=== PATIENT | male | born 1975 | race Hispanic/Latino ===

== ENCOUNTER 2017-07-11 13:33 | Inpatient (IN) | payer SELFPAY ==
[2017-07-11] MEDS ORDERED: Ondansetron ODT 4 MG TAB PO PRN (13:45)
[2017-07-11] MEDS ORDERED: Bisacodyl 5 MG TAB PO PRN (13:45)
[2017-07-11] MEDS ORDERED: Sodium Chloride 0.9% 1,000 ML IV SCH (13:45)
[2017-07-11] MEDS ORDERED: Ondansetron HCl/PF 4 MG/2 ML Vial IVP PRN (13:45)
[2017-07-11 14:16] VITALS: BMI 30.1
[2017-07-11] MEDS ORDERED: FLU VACC QS2017-18 36 mo. & older 0.5 ML SYRINGE IM ONE (14:30)
[2017-07-11] MEDS ORDERED: Magnesium 2 GM/NS 0.9% 100 ML 2 GM in Premix Bag 1 BAG IVPB SCH (15:30)
[2017-07-11 16:20] LABS: Bilirubin Negative (Negative); Blood, Urine Negative (Negative); Glucose, Urine (Dipstick) 100 mg/dL (Negative); Ketone, Urine Negative (Negative); Nitrite Negative (Negative); Protein, Urine (Dipstick) Negative (Neg-Trace); Urobilinogen 0.2 mg/dL (0.2-1.0)
[2017-07-11 16:22] LABS: Bacteria/HPF None Seen HPF (None Seen); Hyaline Casts/LPF 0-3 HYALINE CAST LPF (0-3 Hyaline); RBC/HPF 0-3 HPF (0-3); Squamous Epithelial 0-3 HPF (0-3); WBC/HPF 0-3 HPF (0-3)
[2017-07-11] MEDS: Lorazepam 2 MG/ML VIAL SLOW IVP PRN ×2 (16:24→22:14)
[2017-07-11 16:27] LABS: Amphetamine Not Detected (NotDetected); Methadone Not Detected (NotDetected); Methamphetamine Not Detected (NotDetected)
[2017-07-11 17:47] LABS: Sodium 135 mmol/L (135-148)
[2017-07-11 17:49] LABS: Mode NC; Modified Allen's Test POSITIVE; Vent NO
--- NOTE | 2017-07-11 17:53 | HP ---
PRIMARY CARE PHYSICIAN: City call from [place]. CHIEF COMPLAINT: Coughing, wheezing, shortness of breath. HISTORY OF PRESENT ILLNESS: This is a 42-year-old male with a known history of intermittent asthma who has never had intubation, but has been admitted to the hospital multiple times, most rece ntly in August of this year. He was in his normal state of health without any significant asthma s ymptoms until the night before admission then he had sudden onset of shortness of breath, wheezing, c oughing productive of green sputum and upper back pain from struggling to breathe. He took multiple home nebulizer and albuterol treatments without any improvement, so this morning he came into the [facility] Emergency Room and there was noted to be in mild to moderate respiratory distress with diffuse wheezing. He was given multiple back to back nebs with an improvement in his work of breathing and wheezing on exam and he is transferred here for status asthmaticus. He also had a 125 mg of Solu-Med rol there and did not get any magnesium. He had a chest x-ray that showed no infiltrate, just some p eribronchial cuffing. No other significant abnormalities on his labs. He did have a negative flu te st there. PAST MEDICAL HISTORY: Mild intermittent asthma. PAST SURGICAL HISTORY: Appendectomy. FAMILY HISTORY: No asthma in the family. There is a family history of hypertension. SOCIAL HISTORY: The patient is a previous smoker, but has not smoked for 15 years. He does report u sing marijuana intermittently, last time was 2 weeks ago. He drinks a 6 pack of beer per week and de nies other drug use. 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 He is with five children a nd his kids have had some upper respiratory tract infections recently. ALLERGIES: No known drug allergies. CURRENT MEDICATIONS: 1. Albuterol nebulizer and inhaler as needed for shortness breath, wheezing, and coughing. 2. Flovent inhaler daily, uncertain dose. REVIEW OF SYSTEMS: CONSTITUTIONAL: No fevers or chills. He does get sweats with an asthma attack. EYES: No double vision or blurred vision. HEENT: He has not had any congestion or drainage. He has had some sore throat. CARDIOVASCULAR: No chest pain, no palpitations or racing heart. PULMONARY: See HPI. GASTROINTESTINAL: No abdominal pain. He did have vomiting of mucus one time this morning. No other nausea or vomiting, no diarrhea or constipation. GENITOURINARY: No dysuria or hematuria. MUSCULOSKELETAL: Upper back pain from increased work of breathing. No other muscle aches or joint p ains. SKIN: No rashes or other lesions noted. NEUROLOGIC: No numbness, tingling or focal weakness. PHYSICAL EXAMINATION: VITAL SIGNS: Blood pressure 166/87, pulse 108, respirations 26 on BiPAP, O2 sat 90% on 2 liter oxyge n flow rate, temperature 99.5. GENERAL: This is a well-developed, well-nourished male in mild respiratory distress on BiPA P. HEENT: Pupils equal, round, and reactive to light. Oropharynx dry mucous membranes. NECK: Supple, no lymphadenopathy, no thyroid nodules or enlargement, no JVD. HEART: Mildly tachycardic, regular rhythm, no murmurs, rubs or gallops. LUNGS: Diffuse wheezing bilaterally with tight decreased breath sounds bilaterally. No focal findin gs. ABDOMEN: Soft, nontender to palpation, normoactive bowel sounds, no hepatosplenomegaly or other mass es. EXTREMITIES: No clubbing, cyanosis or edema. NEUROLOGIC: The patient moves all extremities equally, has no facial droop. LABORATORY: From [place] complete metabolic panel was notable for potassium 3.4, CO2 of 21, glucos e of 120, BUN is 6.5. Remainder is normal. CBC is notable only for a white blood cell count of 15,0 00 with 88% neutrophils. Chest x-ray none done in our facility. Per the emergency physician's repor t, the chest x-ray done in [place] showed peribronchial cuffing without any evidence of infiltrate. ASSESSMENT AND PLAN: 1. Acute asthma exacerbation with status asthmaticus. The patient is still quite tight even after h our after his last nebulizer treatment. We will give him 2 mg of magnesium here. We will continue t he BiPAP to assist his breathing and try had often need for intubation. We will continue DuoNebs becky eduled q.6 hours with q.4 hours p.r.n. nebs. We will also continue IV Solu-Medrol 40 mg q.6 hours th en we will convert to p.o. when he is breathing a little bit better. No evidence of infection at thi s time, no evidence of pneumonia, so will hold off on any antibiotics. Due to his significance of hi s exacerbation, I will consult Pulmonology, Dr. Hays to assist us with this case. 2. History of substance abuse. The patient was a little bit anxious and irritated earlier, both at the outside hospital and here. We will check a UDS as he has had a history of multiple drugs in his urine in previous ER visits there. 3. Leukocytosis, likely stress reaction. We will observe and try to go up some with the steroids. 4. Gastrointestinal prophylaxis. Put patient on Protonix due to the steroid use. 5. Deep venous thrombosis prophylaxis. Put patient on sequential compression devices and YESSI while in bed and give him Lovenox. 6. CODE STATUS: Patient is FULL CODE.
[2017-07-11 19:33] LABS: Hematocrit 45.3 % (42.0-52.0); Mean Platelet Volume 7.1 fL (7.4-10.4); Red Blood Cell (RBC) Count 4.86 mill/uL (4.70-6.10); White Blood Cell (WBC) Count 18.8 thou/uL (4.8-10.8)
[2017-07-11 19:44] LABS: Anion Gap 16 mmol/L (10-20); BUN (Urea Nitrogen) 9 mg/dL (8.9-20.6); Calc. Creatinine Clearance 162 mL/min (70-130); Calcium 9.4 mg/dL (7.8-10.44); Carbon Dioxide 20 mmol/L (22-29); Chloride 103 mmol/L (98-107); Estimated GFR-MDRD Greater than 90
[2017-07-11 19:50] LABS: Troponin I Less than 0.010 ng/mL (< 0.028)
--- NOTE | 2017-07-11 20:03 | RAD ---
PORTABLE CHEST 07/11/17 PROVIDED CLINICAL HISTORY: Dyspnea. FINDINGS: Comparison is made with the study dated 08/24/16. Cardiomediastinal silhouette is within normal limits. No focal consolidation, pleural fluid or pneumo thorax apparent. IMPRESSION: No evidence for an acute cardiopulmonary process. POS: [facility]
[2017-07-11 20:19] LABS: Band 7 % (5-11); Neutrophil 89 % (42-75)
[2017-07-11] MEDS: Docusate 100 MG CAP PO SCH (20:45)
[2017-07-11] MEDS ORDERED: Famotidine 20 MG TAB PO SCH (21:00)
[2017-07-11] MEDS ORDERED: Acetaminophen 325 MG TAB PO PRN (22:06)
[2017-07-12 05:06] LABS: Anion Gap 13 mmol/L (10-20); BUN (Urea Nitrogen) 13 mg/dL (8.9-20.6); Calc. Creatinine Clearance 146 mL/min (70-130); Carbon Dioxide 24 mmol/L (22-29); Chloride 100 mmol/L (98-107); Estimated GFR-MDRD Greater than 90; Magnesium 2.7 mg/dL (1.6-2.6); Phosphorus 3.1 mg/dL (2.3-4.7)
[2017-07-12 05:46] LABS: Band 28 % (5-11); Hematocrit 45.1 % (42.0-52.0); Mean Platelet Volume 7.5 fL (7.4-10.4); Neutrophil 68 % (42-75); Red Blood Cell (RBC) Count 4.81 mill/uL (4.70-6.10); White Blood Cell (WBC) Count 20.6 thou/uL (4.8-10.8)
[2017-07-12] MEDS: Lorazepam 2 MG/ML VIAL SLOW IVP PRN ×2 (06:12→20:58)
[2017-07-12] MEDS: Enoxaparin Sodium 40 MG/0.4 ML SYRINGE SC SCH (08:06)
[2017-07-12] MEDS: Docusate 100 MG CAP PO SCH ×2 (08:06→21:06)
--- NOTE | 2017-07-12 09:27 | RAD ---
PORTABLE CHEST: HISTORY: Dyspnea. CCU followup. COMPARISON: 07/11/17. Lungs are well aerated. No focal infiltrate. No evidence of vascular congestion, edema, or effusion . IMPRESSION: No acute process. No interval change. POS: [facility]
[2017-07-12] MEDS ORDERED: Chloraseptic Spray 180 ml Bottle PO PRN (14:23)
--- NOTE | 2017-07-12 14:27 | PDOC.PN ---
- Subjective Encounter Start Date: 07/12/17 Encounter Start Time: 14:30 Subjective: Breathing much better. Off Bipap, on NC O2 only. Some sore throat. - Objective Resuscitation Status: Resuscitation Status FULL:Full Resuscitation MAR Reviewed: Yes Vital Signs & Weight: Vital Signs (12 hours) Temp Pulse Resp Pulse Ox 07/12/17 14:18 111 H 16 07/12/17 12:00 98.1 F 07/12/17 11:20 103 H 17 07/12/17 08:21 95 07/12/17 08:19 100 14 07/12/17 08:00 99.8 F H 96 27 H 95 Weight Weight 215 lb 12.8 oz Most Recent Monitor Data Heart Rate from ECG 113 NIBP 114/70 NIBP BP-Mean 81 Respiration from ECG 25 SpO2 96 I&O: 07/11/17 07/12/17 07/13/17 06:59 06:59 06:59 Intake Total 180 725 Output Total 0 475 Balance 180 250 Result Diagrams: 07/12/17 03:58 07/12/17 03:58 Phys Exam - Physical Examination Constitutional: NAD HEENT: moist MMs bilateral tight breath sounds and diffuse wheezing, but much improved Cardiovascular: RRR, no significant murmur Gastrointestinal: soft, positive bowel sounds Neurological: non-focal, moves all 4 limbs Psychiatric: normal affect, A&O x 3 Dx/Plan (1) Acute respiratory failure with hypoxia Code(s): J96.01 - ACUTE RESPIRATORY FAILURE WITH HYPOXIA Status: Acute (2) Asthma exacerbation Code(s): J45.901 - UNSPECIFIED ASTHMA WITH (ACUTE) EXACERBATION Status: Acute Qualifiers: Asthma persistence: intermittent (3) Substance abuse Code(s): F19.10 - OTHER PSYCHOACTIVE SUBSTANCE ABUSE, UNCOMPLICATED Status: Acute Comment: UDS positive for marijana and cocaine - Plan cont current plan of care, respiratory therapy, DVT proph w/lovenox, DVT proph w /SCDs Cleared to transfer to telemetry per pulmonology. * . - Discharge Day Encounter end time: 15:00
--- NOTE | 2017-07-12 16:45 | CON ---
DATE OF SERVICE: 07/12/2017 SERVICE: Pulmonary Medicine. REASON FOR CONSULTATION: Asthma exacerbation. HISTORY OF PRESENT ILLNESS: The patient is a 42-year-old white male with past medical history signif icant for asthma. He is only using fluticasone and albuterol in the outpatient setting, but what he describes to me was actually ProAir and Ventolin. He suggested to me that he is not on anything call ed fluticasone, despite that being on his listed home medication. Either way, he came into the [facility] with a fairly subacute onset of increasing shortness of breath over a period of about 3-4 days. He started having progressively increasing difficulty breathing, wheezing, and sputum production of g reen mucus. He presented to the Emergency Department after multiple nebulizer medications, and albut rico treatments did not provide him with significant relief. The Emergency Department initiated a wo rkup, and he was subsequently transitioned to us. He got a significant amount of steroids and magnes ium. He was requesting albuterol to be provided for him less than every 30 minutes. He is becoming increasingly tachycardic to the 110s and 120s. In the IMCU last night, he had multiple episodes of d ecompensation, prompting phone calls. I went in to evaluate him. I stood outside of the doorway and watch his respiratory rate. He was in the 20s, but upon entering the room. he abruptly increase his respiratory rate in to the 40s. He was carrying on in a way that had a scary appearance. As such, I wanted to monitored him more closely without intubating him in the ICU. He was transitioned there. Overnight, he had no significant events of respiratory otherwise. He indicates that he did not sle ep a wink, but the nursing staff is suggesting that he did actually get a little bit of rest. PAST MEDICAL HISTORY: Asthma. PAST SURGICAL HISTORY: Appendectomy. FAMILY HISTORY: Noncontributory. SOCIAL HISTORY: The patient denies any illicit drugs. That being said, he is positive for both perry marilyn and cocaine metabolites. He has not smoked for over 15 years. He drinks alcohol on a weekly b asis. He has 5 children home and he is . He has been exposed to recent upper respiratory tra ct infections. 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 ALLERGIES: No known drug allergies. MEDICATIONS: List of his inpatient medications were reviewed. Couple of small updates were made. REVIEW OF SYSTEMS: General, head, ears, eyes, nose, throat, cardiovascular, respiratory, GI, , mus culoskeletal, neurologic and skin is negative except as mentioned in the HPI. PHYSICAL EXAMINATION: VITAL SIGNS: Afebrile with a T-max of 99.8. Pulse 113, blood pressure 114/70, respirations 25, and saturation 96% on room air. GENERAL: The patient is awake and alert. He is actually in no apparent distress until we walk in an d talk to him. At that point, he develops increasing respiratory distress. HEENT: Normocephalic, atraumatic. Sclerae are white, conjunctivae pink. Oral and nasal mucosa is m oist without lesions. LUNGS: Excellent air entry truthfully. He does not have much for prolonged expiratory phase with hi s tachypnea. He has a little bit of expiratory wheezing present and rhonchi. No crackles were appre ciated. HEART: Normal rate. Tachycardic. Regular. ABDOMEN: Soft, nontender, nondistended. Bowel sounds are positive. MUSCULOSKELETAL: No cyanosis or clubbing. There is no pitting in the bilateral lower extremities. NEUROLOGIC: Grossly nonfocal. LABORATORY DATA: WBC 20.6, hemoglobin 15.3, platelets 307,000. Neutrophil count is 68% with 28% ban ds. PH 7.41, pCO2 of 32, pO2 of 60 corresponding to a saturation of 94%. Basic metabolic profile is essentially unremarkable. Troponin and BNP are negative. Magnesium is 2.7, phosphorus 3.1. Urinal ysis is unremarkable. Urine drug screen is positive for cocaine and cannabinoids, confirmatory cocai ne testing in the urine is currently pending. IMAGING: Chest x-ray demonstrates not much of a cardiothoracic process. There is no significant hyp erexpansion of the bilateral lungs suggestive of horrendous obstructive lung disease. I do not see a ny overt consolidation or pleural effusion. There is no significant cephalization to suggest volume overload. ASSESSMENT: 1. Asthma with acute exacerbation. 2. Upper respiratory tract infection, possible. PLAN: We will feed the patient, work on moving in a little bit. I will see the respiratory virus pa kimani to see whether or not this is being driven by a virus. Steroids will be deescalated twice daily. We will continue to wean him as tolerated. I will provide him with the throat spray. My suspicion is that the leukocytosis is mostly driven by the steroids, but will continue to observe for addition al signs of sepsis. If he shows any, arevalo culture and empiric antibiotics will need to be considered. That being said, over the previous 12 hours, the patient has had a significant improvement, and he currently has no other focalizing symptoms consistent with an acute inflammatory process/infection.
[2017-07-12] MEDS ORDERED: Pantoprazole 40 MG VIAL IVP SCH (21:00)
[2017-07-13] MEDS: Enoxaparin Sodium 40 MG/0.4 ML SYRINGE SC SCH (08:30)
[2017-07-13] MEDS: Docusate 100 MG CAP PO SCH (08:30)
[2017-07-13 08:33] VITALS: BP 115/66; TEMP 98.4
--- NOTE | 2017-07-13 11:31 | PDOC.PN ---
- Subjective Encounter Start Date: 07/13/17 Encounter Start Time: 11:22 Patient seen at bedside. Still requiring oxygen, still gets SOB on exertion. Productive cough. - Objective Resuscitation Status: Resuscitation Status FULL:Full Resuscitation MAR Reviewed: Yes Vital Signs & Weight: Vital Signs (12 hours) Temp Pulse Resp BP BP Pulse Ox 07/13/17 08:33 98.4 F 89 20 115/66 97 07/13/17 08:08 98.4 F 89 20 97 07/13/17 07:31 82 20 96 07/13/17 03:46 77 20 96 07/13/17 03:05 98.5 F 88 14 133/71 98 07/13/17 00:29 86 16 97 07/13/17 00:00 98.0 F 98 20 97/55 L 98 Weight Weight 215 lb 12.8 oz Most Recent Monitor Data Heart Rate from ECG 106 NIBP 132/80 NIBP BP-Mean 92 Respiration from ECG 19 SpO2 97 I&O: 07/12/17 07/13/17 07/14/17 06:59 06:59 06:59 Intake Total 180 1876 Output Total 0 475 Balance 180 1401 Result Diagrams: 07/12/17 03:58 07/12/17 03:58 Phys Exam - Physical Examination Constitutional: NAD HEENT: moist MMs Neck: no JVD wheezing bilaterally Cardiovascular: RRR Gastrointestinal: soft Musculoskeletal: pulses present Neurological: moves all 4 limbs Psychiatric: normal affect, A&O x 3 Dx/Plan (1) Substance abuse Code(s): F19.10 - OTHER PSYCHOACTIVE SUBSTANCE ABUSE, UNCOMPLICATED Status: Acute Comment: UDS positive for marijana and cocaine (2) Asthma exacerbation Code(s): J45.901 - UNSPECIFIED ASTHMA WITH (ACUTE) EXACERBATION Status: Acute Qualifiers: Asthma persistence: intermittent - Plan cont current plan of care, plan discussed w/ family, social work supervisor, respiratory therapy, DVT proph w/lovenox * Continue with duonebs. * IV steroids * Wean oxygen as tolerates. * OOB/Ambulate as tolerated
--- NOTE | 2017-07-13 17:40 | DIS ---
DATE OF ADMISSION: 07/11/2017 DATE OF DISCHARGE: 07/13/2017 BRIEF HOSPITAL COURSE: Mr. Tanmay Fuchs is a 42-year-old male who presented to the emergency room compl aining of coughing and shortness of breath. Clinically, the patient appeared to have an asthma exace rbation. He states he has had multiple asthma attacks in the past and was transferred to [place] from the [place] [facility] for status asthmaticus. He was given multiple DuoNeb treatments as well as IV Solu-Medrol. He was initially placed on BiPAP and subsequently admitted to the Critical Care Unit. He was weaned off of BiPAP and transferred to telemetry. He continued to receiving aggre ssive DuoNeb and IV Solu-Medrol therapy. He required supplemental O2. He was considerably dyspneic on exertion on 07/13/2017. The patient during the day decided to leave against medical advice. He s ay "I am discharging myself". It was explained to him that he still required intravenous therapy for his status asthmaticus and further therapy was required. He stated he did not want to stay for this . He took out his IV and took off his oxygen and left. No prescriptions were given as the patient l eft against medical advice. The patient understands the risks of leaving against medical advice incl uding worsening of his breathing as well as his asthma and possibly . Date of AMA is 07/13/2017 .
== END 2017-07-13 12:50 | disposition left against medical advice (07) | DRG 202 ==
LOC: IMCU/EMU 13:33 → CCU 21:27 → 2NO 07-12 17:02
PROVIDERS: ADMIT Emergency Medicine; ATTEND Emergency Medicine
PROC: 5A09357 Assistance with Respiratory Ventilation, Less than 24 Consecutive Hours, Continuous Positive Airway Pressure (ICD-10-PCS; principal; 2017-07-11)
DX: J45.22 Mild intermittent asthma with status asthmaticus (principal); J96.01 Acute respiratory failure with hypoxia; Z53.21 Procedure and treatment not carried out due to patient leaving prior to being seen by health care provider; Z87.891 Personal history of nicotine dependence; F12.10 Cannabis abuse, uncomplicated; D72.828 Other elevated white blood cell count
CPT/HCPCS: 36415; 71010; 80048; 80306; 81001; 82805; 83735; 83880; 84100; 84484; 85025; 87633; 87798; 94640; 94660; J1650; J2060; J2920; J7050; J7620